=== PATIENT | male | born 1950 | race Two or more races ===

== ENCOUNTER 2023-06-15 23:51 | Observation (INO) | payer MEDICARE, OTHER ==
[2023-06-16 00:11] VITALS: BMI 20.9
[2023-06-16 01:18] LABS: VENOUS BASE EXCESS -0.8 mmol/L (-2-2); VENOUS O2 SATURATION 93.7 % (70-80); VENOUS PCO2 34.3 mmHg (38-52); VENOUS PH 7.437 (7.310-7.410)
[2023-06-16 01:20] LABS: BASO % 0.5 % (0-2.0); EOS % 0.5 % (0-4.5); HEMOGLOBIN 14.6 GM/dL (11.7-16.9); LYMPH % 16.3 % (8-40); MCH 32.7 pg (25.7-33.7); MCHC 33.9 g/dl (32.0-35.9); MEAN CELL VOLUME 96.5 fl (80-96); MEAN PLT VOLUME 8.9 fl (7.5-11.1); MONO % 8.2 % (3.8-10.2); NEUT % 74.5 % (42.8-82.8); PLATELET COUNT 184 10^3/uL (134-434); RBC 4.45 M/mm3 (4.00-5.60); RDW 15.9 % (11.9-15.9); WHITE BLOOD COUNT 8.1 K/mm3 (4.0-10.0)
[2023-06-16] MEDS ORDERED: ALBUTEROL SO4 2.5/IPRATROPIUM 0.5 INH SOL 3 ML VIAL.NEB. NEB ONE (01:33)
[2023-06-16] MEDS: ALBUTEROL SO4 2.5/IPRATROPIUM 0.5 INH SOL 3 ML VIAL.NEB. NEB ONE (01:35)
[2023-06-16 01:39] LABS: INR 1.22 (0.83-1.09); PROTHROMBIN TIME (PATIENT) 14.1 SEC (9.7-13.0)
[2023-06-16 01:41] LABS: ACTIVATED PTT 29.5 SECONDS (25.2-36.5)
[2023-06-16 01:46] LABS: POTASSIUM 4.2 mmol/L (3.5-5.1)
[2023-06-16 01:48] LABS: ALBUMIN 3.7 g/dl (3.4-5.0); BLOOD UREA NITROGEN 14.6 mg/dL (7-18); CALCIUM 9.7 mg/dL (8.5-10.1)
[2023-06-16 01:50] LABS: MAGNESIUM 2.2 mg/dL (1.8-2.4)
[2023-06-16 01:53] LABS: BILIRUBIN,TOTAL 1.8 mg/dL (0.2-1)
[2023-06-16 01:56] LABS: N-TERMINAL BNP 5302.6 pg/ml (5-125)
[2023-06-16] MEDS ORDERED: AZITHROMYCIN IVPB 500 MG/250 ML BAG IVPB ONE (02:32)
[2023-06-16] MEDS ORDERED: CEFTRIAXONE 1 GM/50 ML BAG ONE (02:32)
[2023-06-16] MEDS: CEFTRIAXONE 1,000 MG in DEXTROSE 5%-WATER - 50 ML IVPB ONE (03:19)
[2023-06-16] MEDS: AZITHROMYCIN IVPB 500 MG in DEXTROSE 5%-WATER - 250 ML IVPB ONE (03:33)
[2023-06-16] MEDS: FUROSEMIDE 40 MG/4 ML INJECTABLE VIAL IVPUSH ONE (03:33)
[2023-06-16] MEDS ORDERED: ENOXAPARIN NA (PORCINE) 40 MG/0.4 ML DISP.SYRIN SQ ONE (09:29)
[2023-06-16] MEDS ORDERED: PANTOPRAZOLE 40 MG TABLET PO ONE (09:29)
[2023-06-16] MEDS ORDERED: TAMSULOSIN HCL 0.4 MG CAP ONE (09:29)
[2023-06-16] MEDS: ENOXAPARIN NA (PORCINE) 40 MG/0.4 ML DISP.SYRIN SQ SCH (09:34)
[2023-06-16] MEDS: TAMSULOSIN HCL 0.4 MG CAP PO SCH (09:34)
[2023-06-16] MEDS: PANTOPRAZOLE 40 MG TABLET PO SCH (09:34)
[2023-06-16 11:04] LABS: BILIRUBIN,DIRECT 0.6 mg/dL (0.0-0.2)
[2023-06-16 16:46] LABS: URINE APPEARANCE CLEAR; URINE BILIRUBIN NEGATIVE (NEGATIVE); URINE COLOR YELLOW; URINE GLUCOSE (UA) NEGATIVE (NEGATIVE); URINE KETONE NEGATIVE (NEGATIVE); URINE LEUK ESTERASE NEGATIVE (NEGATIVE); URINE NITRITE NEGATIVE (NEGATIVE); URINE PROTEIN TRACE (NEGATIVE); URINE UROBILINOGEN 0.2 mg/dL (0.2-1.0)
[2023-06-16] MEDS ORDERED: KETOROLAC TROMETHAMINE 15 MG/ML VIAL ONE (17:16)
[2023-06-16] MEDS: KETOROLAC TROMETHAMINE 15 MG/ML VIAL IVPUSH PRN (17:19)
[2023-06-16] MEDS ORDERED: ROSUVASTATIN CA 20 MG TABLET ONE (22:38)
[2023-06-16] MEDS ORDERED: HEPARIN NA (PORCINE) 5,000 UNITS/ML 1ML VIAL ONE (22:38)
[2023-06-16] MEDS: ROSUVASTATIN CA 20 MG TABLET PO SCH (22:43)
[2023-06-16] MEDS: HEPARIN NA (PORCINE) 5,000 UNITS/ML 1ML VIAL SQ SCH (22:44)
[2023-06-17 07:39] LABS: HEMATOCRIT 39.6 % (35.4-49); HEMOGLOBIN 13.5 GM/dL (11.7-16.9); MCH 32.9 pg (25.7-33.7); MEAN CELL VOLUME 96.8 fl (80-96); MEAN PLT VOLUME 9.8 fl (7.5-11.1); PLATELET COUNT 156 10^3/uL (134-434); RBC 4.09 M/mm3 (4.00-5.60); RDW 16.1 % (11.9-15.9); WHITE BLOOD COUNT 7.1 K/mm3 (4.0-10.0)
[2023-06-17 07:44] LABS: POTASSIUM 3.9 mmol/L (3.5-5.1)
[2023-06-17 07:51] LABS: ALBUMIN 3.1 g/dl (3.4-5.0); CALCIUM 9.1 mg/dL (8.5-10.1); MAGNESIUM 2.3 mg/dL (1.8-2.4)
[2023-06-17 07:52] LABS: BLOOD UREA NITROGEN 18.1 mg/dL (7-18)
[2023-06-17 07:53] LABS: ALBUMIN 3.1 g/dl (3.4-5.0)
[2023-06-17 07:54] LABS: PHOSPHOROUS 4.4 mg/dL (2.5-4.9)
[2023-06-17 07:55] LABS: CREATININE 1.1 mg/dL (0.55-1.3)
[2023-06-17 07:56] LABS: BILIRUBIN,DIRECT 0.6 mg/dL (0.0-0.2); BILIRUBIN,TOTAL 1.8 mg/dL (0.2-1)
[2023-06-17 07:58] LABS: BILIRUBIN,TOTAL 1.9 mg/dL (0.2-1)
[2023-06-17] MEDS: FUROSEMIDE 40 MG/4 ML INJECTABLE VIAL IVPUSH SCH (09:26)
[2023-06-17] MEDS: HEPARIN NA (PORCINE) 5,000 UNITS/ML 1ML VIAL SQ SCH (21:43)
[2023-06-18 08:27] LABS: BASO % 0.9 % (0-2.0); EOS % 2.4 % (0-4.5); HEMATOCRIT 44.2 % (35.4-49); HEMOGLOBIN 14.7 GM/dL (11.7-16.9); LYMPH % 22.2 % (8-40); MCH 32.2 pg (25.7-33.7); MCHC 33.2 g/dl (32.0-35.9); MEAN CELL VOLUME 97.1 fl (80-96); MEAN PLT VOLUME 9.4 fl (7.5-11.1); MONO % 11.1 % (3.8-10.2); NEUT % 63.4 % (42.8-82.8); PLATELET COUNT 174 10^3/uL (134-434); RBC 4.55 M/mm3 (4.00-5.60); RDW 15.9 % (11.9-15.9); WHITE BLOOD COUNT 7.8 K/mm3 (4.0-10.0)
[2023-06-18 08:52] LABS: POTASSIUM 3.8 mmol/L (3.5-5.1)
[2023-06-18 09:02] LABS: ALBUMIN 3.6 g/dl (3.4-5.0); BLOOD UREA NITROGEN 17.6 mg/dL (7-18); CALCIUM 9.7 mg/dL (8.5-10.1); MAGNESIUM 2.3 mg/dL (1.8-2.4)
[2023-06-18 09:05] LABS: CREATININE 1.2 mg/dL (0.55-1.3)
[2023-06-18 09:06] LABS: PHOSPHOROUS 4.3 mg/dL (2.5-4.9)
[2023-06-18 09:07] LABS: BILIRUBIN,TOTAL 1.9 mg/dL (0.2-1); TOT PROT 6.7 g/dl (6.4-8.2)
[2023-06-19 07:34] LABS: BASO % 0.5 % (0-2.0); EOS % 2.8 % (0-4.5); HEMATOCRIT 41.4 % (35.4-49); HEMOGLOBIN 14.2 GM/dL (11.7-16.9); LYMPH % 22.6 % (8-40); MCH 33.1 pg (25.7-33.7); MCHC 34.4 g/dl (32.0-35.9); MEAN CELL VOLUME 96.3 fl (80-96); MONO % 11.9 % (3.8-10.2); NEUT % 62.2 % (42.8-82.8); PLATELET COUNT 162 10^3/uL (134-434); RDW 16.1 % (11.9-15.9); WHITE BLOOD COUNT 6.9 K/mm3 (4.0-10.0)
[2023-06-19 07:56] LABS: POTASSIUM 4.2 mmol/L (3.5-5.1)
[2023-06-19 08:09] LABS: BLOOD UREA NITROGEN 13.5 mg/dL (7-18); CALCIUM 9.3 mg/dL (8.5-10.1)
[2023-06-19 08:10] LABS: ALBUMIN 3.2 g/dl (3.4-5.0); MAGNESIUM 2.3 mg/dL (1.8-2.4)
[2023-06-19 08:12] LABS: CREATININE 0.9 mg/dL (0.55-1.3); PHOSPHOROUS 3.8 mg/dL (2.5-4.9)
[2023-06-19 08:13] LABS: BILIRUBIN,TOTAL 1.5 mg/dL (0.2-1); TOT PROT 6.4 g/dl (6.4-8.2)
[2023-06-19] MEDS: TAMSULOSIN HCL 0.4 MG CAP PO SCH (08:23)
[2023-06-19 09:03] VITALS: RESP 18
[2023-06-19] MEDS: FINASTERIDE 5 MG TABLET (FP) PO SCH (09:10)
[2023-06-19 15:41] VITALS: BP 116/68; PULSE 86; TEMP 98.3
== END 2023-06-19 16:59 | disposition home health service (06) ==
LOC: JER 23:51 → JERBED 06-16 02:51 → J4S 06-17 01:14
PROVIDERS: ADMIT Internal Medicine; ATTEND Internal Medicine
PROC: 3E0F7GC Introduction of Other Therapeutic Substance into Respiratory Tract, Via Natural or Artificial Opening (ICD-10-PCS; principal; 2023-06-16)
PROC: 3E03329 Introduction of Other Anti-infective into Peripheral Vein, Percutaneous Approach (ICD-10-PCS; 2023-06-16)
PROC: 3E023GC Introduction of Other Therapeutic Substance into Muscle, Percutaneous Approach (ICD-10-PCS; 2023-06-16)
PROC: 3E033GC Introduction of Other Therapeutic Substance into Peripheral Vein, Percutaneous Approach (ICD-10-PCS; 2023-06-16)
PROC: 3E0333Z Introduction of Anti-inflammatory into Peripheral Vein, Percutaneous Approach (ICD-10-PCS; 2023-06-16)
DX: I50.31 Acute diastolic (congestive) heart failure (principal); H81.399 Other peripheral vertigo, unspecified ear; E78.5 Hyperlipidemia, unspecified; R06.02 Shortness of breath; R94.5 Abnormal results of liver function studies; K21.9 Gastro-esophageal reflux disease without esophagitis; R94.31 Abnormal electrocardiogram [ECG] [EKG]; R33.9 Retention of urine, unspecified; K40.90 Unilateral inguinal hernia, without obstruction or gangrene, not specified as recurrent; N40.0 Benign prostatic hyperplasia without lower urinary tract symptoms; R74.01 Elevation of levels of liver transaminase levels; K76.0 Fatty (change of) liver, not elsewhere classified
CPT/HCPCS: 0241U-QW; 36415; 71045-TC-FY; 71260-TC; 74177-TC; 76705-TC; 80053; 80076; 81003; 82248; 82803; 83735; 83880; 84100; 84484; 85025; 85027; 85610; 85730; 86705; 86707; 86709; 86803; 87340; 87350; 87517; 93005; 93010; 93306-TC; 94640; 96365; 96368; 96372; 96375; 96376; 99285-25; G0378; J1644; Q9967

== ENCOUNTER 2023-11-21 18:23 | Inpatient (IN) | payer MEDICARE, OTHER ==
[2023-11-21 20:14] LABS: BASO % 0.4 % (0-2.0); EOS % 0.7 % (0-4.5); HEMATOCRIT 49.9 % (35.4-49); HEMOGLOBIN 16.5 GM/dL (11.7-16.9); LYMPH % 14.7 % (8-40); MCH 31.5 pg (25.7-33.7); MCHC 33.2 g/dl (32.0-35.9); MEAN CELL VOLUME 94.8 fl (80-96); MEAN PLT VOLUME 8.4 fl (7.5-11.1); MONO % 9.7 % (3.8-10.2); NEUT % 74.5 % (42.8-82.8); PLATELET COUNT 208 10^3/uL (134-434); RBC 5.26 M/mm3 (4.00-5.60); RDW 19.8 % (11.9-15.9); WHITE BLOOD COUNT 7.4 K/mm3 (4.0-10.0)
[2023-11-21 20:23] LABS: INR 1.24 (0.83-1.09); PROTHROMBIN TIME (PATIENT) 13.9 SEC (9.7-13.0)
[2023-11-21 20:26] LABS: ACTIVATED PTT 30.4 SECONDS (25.2-36.5)
[2023-11-21 20:33] LABS: POTASSIUM 3.6 mmol/L (3.5-5.1)
[2023-11-21 20:39] LABS: ALBUMIN 3.4 g/dl (3.4-5.0); BLOOD UREA NITROGEN 26.5 mg/dL (7-18); CALCIUM 9.7 mg/dL (8.5-10.1)
[2023-11-21 20:42] LABS: BILIRUBIN,TOTAL 3.7 mg/dL (0.2-1); CREATININE 1.2 mg/dL (0.55-1.3)
[2023-11-21 20:43] LABS: TOT PROT 6.6 g/dl (6.4-8.2)
[2023-11-21 20:46] LABS: EPI CELLS 10 /uL (0-25.1); HYALINE CASTS 0 /uL (0-3.1); PH,URINE 5.5 (5.0-8.0); URINE APPEARANCE CLEAR; URINE BACTERIA 4 /uL (0-1359); URINE BILIRUBIN NEGATIVE (NEGATIVE); URINE COLOR DK YELLOW; URINE GLUCOSE (UA) NEGATIVE (NEGATIVE); URINE KETONE NEGATIVE (NEGATIVE); URINE LEUK ESTERASE NEGATIVE (NEGATIVE); URINE NITRITE NEGATIVE (NEGATIVE); URINE PROTEIN 1+ (NEGATIVE); URINE RBC 69 /uL (0-23.9); URINE WBC 19 /uL (0-25.8)
[2023-11-21 20:47] LABS: N-TERMINAL BNP 16652.7 pg/ml (5-125)
[2023-11-21] MEDS ORDERED: FUROSEMIDE 40 MG/4 ML INJECTABLE VIAL ONE (20:56)
[2023-11-21] MEDS: FUROSEMIDE 40 MG/4 ML INJECTABLE VIAL IVPUSH ONE (21:05)
[2023-11-21] MEDS: SODIUM CHLORIDE 0.9% 500 ML INFUS.BAG IV ONE ×2 (21:12→21:30)
[2023-11-21] MEDS ORDERED: LACTULOSE 20 GM/30 ML UDC (FOR ORAL USE ONLY) ONE (22:02)
[2023-11-21] MEDS ORDERED: POLYETHYLENE GLYCOL (HEALTHYLAX) 3350 17 GM PACKET ONE (22:02)
[2023-11-21] MEDS: LACTULOSE 20 GM/30 ML UDC (FOR ORAL USE ONLY) PO ONE (22:23)
[2023-11-21] MEDS: POLYETHYLENE GLYCOL (HEALTHYLAX) 3350 17 GM PACKET PO SCH (22:23)
[2023-11-21 22:29] LABS: URINE CRYSTALS MANY CALCIUM OXALATE /hpf
[2023-11-21] MEDS ORDERED: POTASSIUM CHLORIDE ORAL LIQUID 20 MEQ/15 ML ONE (22:30)
[2023-11-21] MEDS: POTASSIUM CHLORIDE ORAL LIQUID 20 MEQ/15 ML PO ONE (22:32)
[2023-11-21] MEDS ORDERED: MECLIZINE HCL 12.5 MG TABLET PO PRN (23:29)
[2023-11-22] MEDS ORDERED: FUROSEMIDE 40 MG/4 ML INJECTABLE VIAL IVPUSH SCH
[2023-11-22] MEDS: FUROSEMIDE 40 MG/4 ML INJECTABLE VIAL IVPUSH SCH (01:39)
[2023-11-22 07:58] LABS: BASO % 0.5 % (0-2.0); EOS % 0.2 % (0-4.5); HEMATOCRIT 46.8 % (35.4-49); HEMOGLOBIN 15.6 GM/dL (11.7-16.9); LYMPH % 8.3 % (8-40); MCH 31.8 pg (25.7-33.7); MCHC 33.3 g/dl (32.0-35.9); MEAN CELL VOLUME 95.3 fl (80-96); MEAN PLT VOLUME 8.8 fl (7.5-11.1); MONO % 7.8 % (3.8-10.2); NEUT % 83.2 % (42.8-82.8); PLATELET COUNT 184 10^3/uL (134-434); RBC 4.91 M/mm3 (4.00-5.60); RDW 19.8 % (11.9-15.9); WHITE BLOOD COUNT 8.9 K/mm3 (4.0-10.0)
[2023-11-22 08:10] LABS: POTASSIUM 3.3 mmol/L (3.5-5.1)
[2023-11-22 08:13] LABS: ALBUMIN 3.2 g/dl (3.4-5.0); BLOOD UREA NITROGEN 23.2 mg/dL (7-18); CALCIUM 9.5 mg/dL (8.5-10.1)
[2023-11-22 08:16] LABS: CREATININE 1.2 mg/dL (0.55-1.3); PHOSPHOROUS 3.6 mg/dL (2.5-4.9)
[2023-11-22 08:18] LABS: BILIRUBIN,TOTAL 4.2 mg/dL (0.2-1); TOT PROT 6.2 g/dl (6.4-8.2)
[2023-11-22] MEDS: TAMSULOSIN HCL 0.4 MG CAP PO SCH (09:30)
[2023-11-22] MEDS: levETIRAcetam 250 MG TABLET PO SCH (09:30)
[2023-11-22] MEDS: PANTOPRAZOLE 40 MG TABLET PO SCH (09:30)
[2023-11-22] MEDS: ENOXAPARIN NA (PORCINE) 40 MG/0.4 ML DISP.SYRIN SQ SCH (09:30)
[2023-11-22] MEDS: metoPROLOL SUCCINATE 25 MG TAB.SR.24H (FP) PO SCH (09:30)
[2023-11-22] MEDS: FINASTERIDE 5 MG TABLET (FP) PO SCH (09:30)
[2023-11-22] MEDS: LIPASE/PROTEASE/AMYLASE 36,000 UNIT CAPSULE PO SCH (16:04)
[2023-11-22] MEDS: ROSUVASTATIN CA 40 MG TABLET PO SCH (22:16)
[2023-11-22] MEDS: POTASSIUM CHLORIDE ORAL LIQUID 20 MEQ/15 ML PO ONE (22:16)
[2023-11-23] MEDS: levETIRAcetam 500 MG/5 ML INJECTION VIAL IVPB ONE (01:10)
[2023-11-23] MEDS ORDERED: RAPID SEQUENCE INTUBATION KIT NR ONE (01:12)
[2023-11-23 01:18] LABS: ARTERIAL BLD GAS O2 SATURATION 97.3 % (95-98); ARTERIAL BLOOD GAS BASE EXCESS -1.5 mmol/L (-2-2); ARTERIAL BLOOD GAS PO2 82.2 mmHg (80-100)
[2023-11-23 01:22] LABS: ALLENS TEST POSITIVE
[2023-11-23] MEDS: SODIUM CHLORIDE 500 ML IV STA (01:31)
[2023-11-23] MEDS ORDERED: MIDAZOLAM IN 0.9 % SOD.CHLORID 1 MG/1 ML PLAST..BAG ONE (01:47)
[2023-11-23 02:38] LABS: ARTERIAL BLD GAS O2 SATURATION 91.3 % (95-98); ARTERIAL BLOOD GAS BASE EXCESS -6.7 mmol/L (-2-2); ARTERIAL BLOOD GAS PO2 60.8 mmHg (80-100); ARTERIAL BLOOD GAS pH 7.378 (7.350-7.450)
[2023-11-23 02:39] LABS: ALLENS TEST POSITIVE; VENT MODE A/C; VENT RATE 12
[2023-11-23 02:50] LABS: BASO % 0.3 % (0-2.0); EOS % 0.1 % (0-4.5); HEMATOCRIT 43.1 % (35.4-49); HEMOGLOBIN 14.3 GM/dL (11.7-16.9); LYMPH % 10.9 % (8-40); MCH 31.5 pg (25.7-33.7); MCHC 33.2 g/dl (32.0-35.9); MEAN CELL VOLUME 95.1 fl (80-96); MEAN PLT VOLUME 8.4 fl (7.5-11.1); MONO % 9.5 % (3.8-10.2); NEUT % 79.2 % (42.8-82.8); PLATELET COUNT 167 10^3/uL (134-434); RBC 4.53 M/mm3 (4.00-5.60); RDW 20.1 % (11.9-15.9); WHITE BLOOD COUNT 6.7 K/mm3 (4.0-10.0)
[2023-11-23] MEDS: POLYETHYLENE GLYCOL (HEALTHYLAX) 3350 17 GM PACKET PO SCH (02:51)
[2023-11-23] MEDS: MIDAZOLAM IN 0.9 % SOD.CHLORID 100 MG/100 ML PLAST..BAG IVPB SCH (02:51)
[2023-11-23] MEDS: PATIENT'S OWN MEDICATION (NON-FORMULARY) (Tenapanor Hcl [Ibsrela] 50 MG Tablet) PO SCH (02:52)
[2023-11-23] MEDS: SODIUM CHLORIDE 1,000 ML IV STA (02:52)
[2023-11-23 03:03] LABS: INR 1.53 (0.83-1.09); PROTHROMBIN TIME (PATIENT) 17.4 SEC (9.7-13.0)
[2023-11-23 03:06] LABS: ACTIVATED PTT 29.9 SECONDS (25.2-36.5)
[2023-11-23 03:10] LABS: CHLORIDE 108 mmol/L (98-107); POTASSIUM 3.1 mmol/L (3.5-5.1); SODIUM 137 mmol/L (136-145)
[2023-11-23 03:14] LABS: ANION GAP 9 mmol/L (4-13); CO2 21 mmol/L (21-32); GLUCOSE,RANDOM 98 mg/dL (74-106); MAGNESIUM 1.6 mg/dL (1.8-2.4)
[2023-11-23 03:15] LABS: BLOOD UREA NITROGEN 22.8 mg/dL (7-18)
[2023-11-23 03:17] LABS: CREATININE 0.9 mg/dL (0.55-1.3); SGPT/ALT 24 U/L (13-61)
[2023-11-23 03:18] LABS: PHOSPHOROUS 2.9 mg/dL (2.5-4.9); SGOT/AST 41 U/L (15-37)
[2023-11-23 03:19] LABS: BILIRUBIN,TOTAL 2.7 mg/dL (0.2-1); TOT PROT 4.4 g/dl (6.4-8.2)
[2023-11-23] MEDS: POLYETHYLENE GLYCOL (HEALTHYLAX) 3350 17 GM PACKET PO ONE (03:19)
[2023-11-23 03:20] LABS: ALK PHOS 103 U/L (45-117)
[2023-11-23] MEDS: CEFTRIAXONE 1 GM in DEXTROSE 5%-WATER - 50 ML IVPB SCH (03:22)
[2023-11-23 03:27] LABS: ALBUMIN 2.2 g/dl (3.4-5.0); CALCIUM 6.7 mg/dL (8.5-10.1)
[2023-11-23 03:28] LABS: LACTIC ACID 3.4 mmol/L (0.4-2.0)
[2023-11-23] MEDS: TAMSULOSIN HCL 0.4 MG CAP PO SCH (08:52)
[2023-11-23] MEDS: MAGNESIUM 2GM/50ML STERILE WATER IVPB IVPB ONE (09:08)
[2023-11-23] MEDS: levETIRAcetam 500 MG/5 ML INJECTION VIAL IVPB SCH (09:09)
[2023-11-23] MEDS: ENOXAPARIN NA (PORCINE) 40 MG/0.4 ML DISP.SYRIN SQ SCH (09:10)
[2023-11-23] MEDS: MUPIROCIN 2% TOPICAL OINTMENT FOR DECOLONIZATION NS SCH (09:10)
[2023-11-23] MEDS: FINASTERIDE 5 MG TABLET (FP) PO SCH (09:11)
[2023-11-23] MEDS ORDERED: [UNRECOGNIZED DRUG - OTHER] PO SCH (10:00)
[2023-11-23] MEDS ORDERED: levETIRAcetam 500 MG/5 ML INJECTION VIAL IVPB SCH (10:00)
[2023-11-23] MEDS ORDERED: FUROSEMIDE 40 MG/4 ML INJECTABLE VIAL IVPUSH SCH ×2 (10:00)
[2023-11-23] MEDS: POTASSIUM PHOSPHATE 30 MM in DEXTROSE 5%-WATER - 250 ML IVPB ONE (10:30)
[2023-11-23] MEDS: LIPASE/PROTEASE/AMYLASE 36,000 UNIT CAPSULE PO SCH (10:31)
[2023-11-23] MEDS ORDERED: DOPAMINE 400 MG/D5W - 400,000 MCG/250 ML INFUS.BAG IVPB ONE (12:37)
[2023-11-23] MEDS: DOPAMINE 400 MG/D5W - 400,000 MCG/250 ML INFUS.BAG IVPB SCH (12:53)
[2023-11-23] MEDS: DOXYCYCLINE INJECTION 100 MG in DEXTROSE 5%-WATER 100 ML IVPB SCH (15:50)
[2023-11-23] MEDS ORDERED: FUROSEMIDE INJECTION 100 MG in SODIUM CHLORIDE 90 ML IVPB SCH (18:00)
[2023-11-23] MEDS ORDERED: FUROSEMIDE 40 MG/4 ML INJECTABLE VIAL ONE (18:32)
[2023-11-23] MEDS: FUROSEMIDE INJECTION 100 MG in SODIUM CHLORIDE 90 ML IVPB SCH (18:36)
[2023-11-23 18:52] LABS: POTASSIUM 4.2 mmol/L (3.5-5.1)
[2023-11-23 18:54] LABS: MAGNESIUM 2.6 mg/dL (1.8-2.4)
[2023-11-23 18:57] LABS: CREATININE 1.4 mg/dL (0.55-1.3)
[2023-11-23 18:58] LABS: PHOSPHOROUS 4.8 mg/dL (2.5-4.9)
[2023-11-23 19:03] LABS: CALCIUM 9.6 mg/dL (8.5-10.1)
[2023-11-23] MEDS: CHLORHEXIDINE GLUCONATE 4% CLEANSER FOR DECOLONIZATION TP SCH (21:53)
[2023-11-23] MEDS ORDERED: ROSUVASTATIN CA 40 MG TABLET PO SCH (22:00)
[2023-11-23] MEDS: ROSUVASTATIN CA 20 MG TABLET PO SCH (23:01)
[2023-11-24] MEDS: VANCOMYCIN/WATER FOR INJ (PEG) 1,000 MG/200 ML BAG IVPB ONE (01:55)
[2023-11-24 06:58] LABS: BASO % 0.6 % (0-2.0); EOS % 0.1 % (0-4.5); HEMATOCRIT 50.7 % (35.4-49); HEMOGLOBIN 16.7 GM/dL (11.7-16.9); LYMPH % 10.6 % (8-40); MCH 31.5 pg (25.7-33.7); MEAN CELL VOLUME 95.5 fl (80-96); MEAN PLT VOLUME 9.2 fl (7.5-11.1); MONO % 8.8 % (3.8-10.2); NEUT % 79.9 % (42.8-82.8); PLATELET COUNT 208 10^3/uL (134-434); RDW 19.9 % (11.9-15.9)
[2023-11-24 07:13] LABS: POTASSIUM 4.6 mmol/L (3.5-5.1)
[2023-11-24 07:20] LABS: ALBUMIN 2.9 g/dl (3.4-5.0); BLOOD UREA NITROGEN 27.8 mg/dL (7-18); CALCIUM 9.4 mg/dL (8.5-10.1); MAGNESIUM 2.4 mg/dL (1.8-2.4)
[2023-11-24 07:23] LABS: CREATININE 1.3 mg/dL (0.55-1.3)
[2023-11-24 07:24] LABS: PHOSPHOROUS 4.7 mg/dL (2.5-4.9)
[2023-11-24] MEDS: SODIUM CHLORIDE 0.9% 500 ML INFUS.BAG IV ONE (08:01)
[2023-11-25] MEDS: ALBUMIN HUMAN 5% 250 ML IV SOLUTION IV ONE (00:35)
[2023-11-25] MEDS ORDERED: VANCOMYCIN/WATER FOR INJ (PEG) 1,000 MG/200 ML BAG IVPB SCH (02:00)
[2023-11-25 07:58] LABS: BASO % 0.7 % (0-2.0); EOS % 0.1 % (0-4.5); HEMATOCRIT 54.9 % (35.4-49); LYMPH % 13.8 % (8-40); MCH 31.5 pg (25.7-33.7); MCHC 32.8 g/dl (32.0-35.9); MEAN CELL VOLUME 95.9 fl (80-96); MEAN PLT VOLUME 9.4 fl (7.5-11.1); MONO % 8.3 % (3.8-10.2); NEUT % 77.1 % (42.8-82.8); PLATELET COUNT 191 10^3/uL (134-434); RBC 5.72 M/mm3 (4.00-5.60); RDW 20.4 % (11.9-15.9); WHITE BLOOD COUNT 10.7 K/mm3 (4.0-10.0)
[2023-11-25 08:13] LABS: POTASSIUM 4.9 mmol/L (3.5-5.1)
[2023-11-25 08:17] LABS: ALBUMIN 3.1 g/dl (3.4-5.0); BLOOD UREA NITROGEN 34.8 mg/dL (7-18); CALCIUM 9.6 mg/dL (8.5-10.1); MAGNESIUM 2.6 mg/dL (1.8-2.4)
[2023-11-25 08:20] LABS: CREATININE 1.7 mg/dL (0.55-1.3); PHOSPHOROUS 5.7 mg/dL (2.5-4.9)
[2023-11-25 08:22] LABS: BILIRUBIN,TOTAL 4.8 mg/dL (0.2-1); TOT PROT 5.9 g/dl (6.4-8.2)
[2023-11-25] MEDS: LACTATED RINGERS SOLUTION 1000 ML INFUS.BAG IV ONE (11:35)
[2023-11-25] MEDS: FENTANYL CITRATE/PF 50 MCG/ML VIAL IVPUSH ONE ×2 (11:55→13:51)
[2023-11-25] MEDS: PHYTONADIONE 5 MG TABLET PO ONE (13:50)
[2023-11-25 13:55] LABS: BILIRUBIN,DIRECT 3.1 mg/dL (0.0-0.2)
[2023-11-25 14:04] VITALS: BMI 20.2
[2023-11-25] MEDS: MIDAZOLAM HCL 5 MG/1 ML Single Dose Vial IVPUSH ONE (14:49)
[2023-11-25] MEDS: NOREPINEPHRINE 0.9 % NACL 8 MG/250 ML BAG IVPB SCH (17:28)
[2023-11-25 18:25] LABS: BF WBC & OTHER NUCLEATED CELLS 354 /mm3
[2023-11-25 20:16] LABS: BODY FLUID MACROPHAGES 8 %; BODY FLUID MESOTHELIAL 17 %
[2023-11-26 08:06] LABS: HEMATOCRIT 50.2 % (35.4-49); HEMOGLOBIN 16.5 GM/dL (11.7-16.9); MCH 31.3 pg (25.7-33.7); MCHC 32.8 g/dl (32.0-35.9); MEAN CELL VOLUME 95.4 fl (80-96); MEAN PLT VOLUME 9.2 fl (7.5-11.1); PLATELET COUNT 192 10^3/uL (134-434); RBC 5.26 M/mm3 (4.00-5.60); RDW 20.6 % (11.9-15.9)
[2023-11-26 08:22] LABS: CALCIUM 8.7 mg/dL (8.5-10.1)
[2023-11-26 08:23] LABS: BLOOD UREA NITROGEN 32.3 mg/dL (7-18); MAGNESIUM 2.3 mg/dL (1.8-2.4)
[2023-11-26 08:24] LABS: INR 2.79 (0.83-1.09); PROTHROMBIN TIME (PATIENT) 31.1 SEC (9.7-13.0)
[2023-11-26 08:26] LABS: ACTIVATED PTT 46.1 SECONDS (25.2-36.5); CREATININE 1.4 mg/dL (0.55-1.3); PHOSPHOROUS 3.3 mg/dL (2.5-4.9)
[2023-11-26 08:27] LABS: BILIRUBIN,TOTAL 6.2 mg/dL (0.2-1); TOT PROT 4.7 g/dl (6.4-8.2)
[2023-11-26 08:36] LABS: ALBUMIN 2.3 g/dl (3.4-5.0)
[2023-11-26 09:31] LABS: ANISOCYTOSIS 1+
[2023-11-26] MEDS: PHYTONADIONE 5 MG TABLET PO ONE (18:17)
[2023-11-27 06:40] LABS: HEMATOCRIT 50.1 % (35.4-49); HEMOGLOBIN 16.2 GM/dL (11.7-16.9); MCH 30.9 pg (25.7-33.7); MCHC 32.3 g/dl (32.0-35.9); MEAN CELL VOLUME 95.7 fl (80-96); MEAN PLT VOLUME 9.1 fl (7.5-11.1); PLATELET COUNT 180 10^3/uL (134-434); RBC 5.24 M/mm3 (4.00-5.60); RDW 20.9 % (11.9-15.9); WHITE BLOOD COUNT 10.5 K/mm3 (4.0-10.0)
[2023-11-27 06:55] LABS: INR 2.19 (0.83-1.09); PROTHROMBIN TIME (PATIENT) 24.6 SEC (9.7-13.0)
[2023-11-27 06:58] LABS: ACTIVATED PTT 42.7 SECONDS (25.2-36.5)
[2023-11-27 07:03] LABS: POTASSIUM 3.7 mmol/L (3.5-5.1)
[2023-11-27 07:06] LABS: ALBUMIN 2.2 g/dl (3.4-5.0); CALCIUM 8.6 mg/dL (8.5-10.1)
[2023-11-27 07:10] LABS: CREATININE 1.4 mg/dL (0.55-1.3)
[2023-11-27 07:11] LABS: BILIRUBIN,TOTAL 7.9 mg/dL (0.2-1); TOT PROT 4.8 g/dl (6.4-8.2)
[2023-11-27 08:23] LABS: HIV INTERPRETATION NEGATIVE (NEGATIVE)
[2023-11-27 09:32] LABS: ANISOCYTOSIS 0; HELMET CELLS 0; HOWELL-JOLLY BODIES 0; MACROCYTOSIS 0; OVALOCYTE 0; ROULEAU 0; SICKELED CELLS 0; TARGET CELLS 0; TEAR DROP CELLS 0; TOXIC GRANULATION 0
[2023-11-27] MEDS: ALBUMIN HUMAN 25% 12.5 GM/50 ML VIAL IV ONE (12:55)
[2023-11-27] MEDS: HYDROCORTISONE SOD SUCCINATE 100 MG/2 ML VIAL IVPB SCH (12:56)
[2023-11-27] MEDS: FLUDROCORTISONE ACETATE 0.1 MG TABLET (FP) PO SCH (12:56)
[2023-11-27] MEDS: FUROSEMIDE 40 MG/4 ML INJECTABLE VIAL IVPUSH ONE (13:45)
[2023-11-27 14:09] LABS: BODY FLUID ALBUMIN 1.1 g/dL (Not Estab.)
[2023-11-28 06:51] LABS: HEMATOCRIT 48.3 % (35.4-49); MCH 31.2 pg (25.7-33.7); MCHC 33.1 g/dl (32.0-35.9); MEAN CELL VOLUME 94.4 fl (80-96); MEAN PLT VOLUME 8.9 fl (7.5-11.1); PLATELET COUNT 175 10^3/uL (134-434); RBC 5.12 M/mm3 (4.00-5.60); RDW 21.4 % (11.9-15.9); WHITE BLOOD COUNT 9.8 K/mm3 (4.0-10.0)
[2023-11-28 07:12] LABS: POTASSIUM 3.4 mmol/L (3.5-5.1)
[2023-11-28 07:17] LABS: INR 1.24 (0.83-1.09); PROTHROMBIN TIME (PATIENT) 13.9 SEC (9.7-13.0)
[2023-11-28 07:19] LABS: ALBUMIN 2.5 g/dl (3.4-5.0); BLOOD UREA NITROGEN 29.7 mg/dL (7-18)
[2023-11-28 07:20] LABS: ACTIVATED PTT 37.5 SECONDS (25.2-36.5)
[2023-11-28 07:22] LABS: BILIRUBIN,DIRECT 6.3 mg/dL (0.0-0.2); CREATININE 1.3 mg/dL (0.55-1.3)
[2023-11-28 07:24] LABS: TOT PROT 5.2 g/dl (6.4-8.2)
[2023-11-28] MEDS: POTASSIUM CHLORIDE ORAL LIQUID 20 MEQ/15 ML PO ONE (10:22)
[2023-11-28 10:33] LABS: ANISOCYTOSIS 2+; MACROCYTOSIS 1+; TARGET CELLS 1+
[2023-11-28] MEDS: KCL 20 MEQ PREMIX BAG 20 MEQ/100 ML INFUS.BAG IVPB ONE (12:56)
[2023-11-29 07:20] LABS: HEMATOCRIT 49.8 % (35.4-49); HEMOGLOBIN 16.5 GM/dL (11.7-16.9); MCH 31.2 pg (25.7-33.7); MCHC 33.1 g/dl (32.0-35.9); MEAN CELL VOLUME 94.1 fl (80-96); MEAN PLT VOLUME 9.3 fl (7.5-11.1); PLATELET COUNT 190 10^3/uL (134-434); RBC 5.29 M/mm3 (4.00-5.60); RDW 21.1 % (11.9-15.9); WHITE BLOOD COUNT 10.1 K/mm3 (4.0-10.0)
[2023-11-29 07:28] LABS: INR 1.02 (0.83-1.09); PROTHROMBIN TIME (PATIENT) 11.7 SEC (9.7-13.0)
[2023-11-29 07:30] LABS: ACTIVATED PTT 35.7 SECONDS (25.2-36.5)
[2023-11-29 07:38] LABS: POTASSIUM 4.1 mmol/L (3.5-5.1)
[2023-11-29 07:41] LABS: ALBUMIN 2.5 g/dl (3.4-5.0); BLOOD UREA NITROGEN 46.6 mg/dL (7-18); MAGNESIUM 2.4 mg/dL (1.8-2.4)
[2023-11-29 07:44] LABS: CREATININE 1.7 mg/dL (0.55-1.3); PHOSPHOROUS 3.6 mg/dL (2.5-4.9)
[2023-11-29 07:46] LABS: BILIRUBIN,TOTAL 6.4 mg/dL (0.2-1); TOT PROT 5.5 g/dl (6.4-8.2)
[2023-11-29 08:51] LABS: PLATELET ESTIMATE ADEQUATE
[2023-11-30 06:53] LABS: HEMOGLOBIN 16.3 GM/dL (11.7-16.9); MCH 31.4 pg (25.7-33.7); MCHC 33.3 g/dl (32.0-35.9); MEAN CELL VOLUME 94.4 fl (80-96); MEAN PLT VOLUME 9.2 fl (7.5-11.1); PLATELET COUNT 175 10^3/uL (134-434); POTASSIUM 4.9 mmol/L (3.5-5.1); RBC 5.19 M/mm3 (4.00-5.60); RDW 20.9 % (11.9-15.9); WHITE BLOOD COUNT 7.3 K/mm3 (4.0-10.0)
[2023-11-30 06:58] LABS: CALCIUM 8.6 mg/dL (8.5-10.1)
[2023-11-30 06:59] LABS: ALBUMIN 2.4 g/dl (3.4-5.0); MAGNESIUM 2.5 mg/dL (1.8-2.4)
[2023-11-30 07:02] LABS: CREATININE 2.4 mg/dL (0.55-1.3)
[2023-11-30 07:03] LABS: BILIRUBIN,TOTAL 5.5 mg/dL (0.2-1); TOT PROT 5.7 g/dl (6.4-8.2)
[2023-11-30 09:40] LABS: ANISOCYTOSIS 1+
[2023-11-30] MEDS ORDERED: ALBUMIN HUMAN 25% 100 ML VIAL IV SCH (10:00)
[2023-11-30] MEDS: ALBUMIN HUMAN 25% 12.5 GM/50 ML VIAL IV SCH (10:49)
[2023-11-30] MEDS: ENOXAPARIN NA (PORCINE) 30 MG/0.3 ML DISP.SYRIN SQ SCH (10:58)
[2023-11-30] MEDS: METOCLOPRAMIDE HCL INJECTION 10 MG/2 ML VIAL IVPUSH SCH (13:15)
[2023-11-30] MEDS ORDERED: ALBUTEROL SO4 2.5/IPRATROPIUM 0.5 INH SOL 3 ML VIAL.NEB. NEB PRN (13:26)
[2023-11-30] MEDS ORDERED: ENOXAPARIN NA (PORCINE) 30 MG/0.3 ML DISP.SYRIN SQ SCH (13:29)
[2023-11-30] MEDS: CEFTRIAXONE 1 GM in DEXTROSE 5%-WATER - 50 ML IVPB SCH (14:29)
[2023-11-30] MEDS: DOXYCYCLINE INJECTION 100 MG in DEXTROSE 5%-WATER 100 ML IVPB SCH (14:29)
[2023-11-30] MEDS: DEXMEDETOMIDINE PREMIX 400 MCG/100 ML BAG IVPB SCH (17:53)
[2023-12-01 07:47] LABS: HEMATOCRIT 44.8 % (35.4-49); MCH 31.2 pg (25.7-33.7); MCHC 33.5 g/dl (32.0-35.9); MEAN CELL VOLUME 93.2 fl (80-96); MEAN PLT VOLUME 8.8 fl (7.5-11.1); PLATELET COUNT 155 10^3/uL (134-434); RBC 4.81 M/mm3 (4.00-5.60); RDW 21.4 % (11.9-15.9); WHITE BLOOD COUNT 9.4 K/mm3 (4.0-10.0)
[2023-12-01 08:11] LABS: POTASSIUM 5.3 mmol/L (3.5-5.1)
[2023-12-01 08:15] LABS: MAGNESIUM 2.7 mg/dL (1.8-2.4)
[2023-12-01 08:18] LABS: ALBUMIN 2.4 g/dl (3.4-5.0)
[2023-12-01 08:20] LABS: BILIRUBIN,TOTAL 5.2 mg/dL (0.2-1); CREATININE 3.2 mg/dL (0.55-1.3); TOT PROT 5.6 g/dl (6.4-8.2)
[2023-12-01 08:27] LABS: BLOOD UREA NITROGEN 96.1 mg/dL (7-18)
[2023-12-01 09:11] LABS: ANISOCYTOSIS 1+; MACROCYTOSIS 1+
[2023-12-01] MEDS: ENOXAPARIN NA (PORCINE) 30 MG/0.3 ML DISP.SYRIN SQ SCH (09:51)
[2023-12-01] MEDS: HEPARIN NA (PORCINE) 5,000 UNITS/ML 1ML VIAL SQ SCH (21:30)
[2023-12-02] MEDS: VASopressin 40 UNITS/100 ML BAG IV SCH (02:30)
[2023-12-02] MEDS ORDERED: VASopressin 20 UNITS/ML VIAL IV ONE (03:10)
[2023-12-02] MEDS: FUROSEMIDE 40 MG/4 ML INJECTABLE VIAL IVPUSH ONE (05:00)
[2023-12-02 05:16] LABS: ARTERIAL BLOOD GAS PO2 44.9 mmHg (80-100); ARTERIAL BLOOD GAS pH 7.273 (7.350-7.450)
[2023-12-02 05:33] LABS: ALBUMIN 2.3 g/dl (3.4-5.0)
[2023-12-02 05:35] LABS: BILIRUBIN,DIRECT 3.7 mg/dL (0.0-0.2)
[2023-12-02 05:37] LABS: BILIRUBIN,TOTAL 4.1 mg/dL (0.2-1); CHLORIDE 95 mmol/L (98-107); POTASSIUM 5.7 mmol/L (3.5-5.1); SODIUM 132 mmol/L (136-145); TOT PROT 4.9 g/dl (6.4-8.2)
[2023-12-02 05:39] LABS: ANION GAP 16 mmol/L (4-13); CALCIUM 7.4 mg/dL (8.5-10.1); CO2 21 mmol/L (21-32); GLUCOSE,RANDOM 117 mg/dL (74-106); HEMATOCRIT 44.5 % (35.4-49); HEMOGLOBIN 14.4 GM/dL (11.7-16.9); LACTIC ACID 2.5 mmol/L (0.4-2.0); MCH 30.3 pg (25.7-33.7); MCHC 32.4 g/dl (32.0-35.9); MEAN CELL VOLUME 93.5 fl (80-96); PLATELET COUNT 161 10^3/uL (134-434); RBC 4.75 M/mm3 (4.00-5.60); RDW 20.9 % (11.9-15.9); WHITE BLOOD COUNT 15.7 K/mm3 (4.0-10.0)
[2023-12-02 05:40] LABS: ALBUMIN 2.6 g/dl (3.4-5.0); MAGNESIUM 2.8 mg/dL (1.8-2.4)
[2023-12-02 05:42] LABS: CREATININE 3.7 mg/dL (0.55-1.3)
[2023-12-02 05:43] LABS: SGOT/AST 602 U/L (15-37); SGPT/ALT 157 U/L (13-61)
[2023-12-02 05:44] LABS: BILIRUBIN,TOTAL 4.8 mg/dL (0.2-1); TOT PROT 5.6 g/dl (6.4-8.2)
[2023-12-02 05:45] LABS: ALK PHOS 255 U/L (45-117)
[2023-12-02 05:51] LABS: BLOOD UREA NITROGEN 123.4 mg/dL (7-18)
[2023-12-02 08:13] LABS: FIBROSIS SCORE. 0.98 (0.00-0.21); HCV ALPHA 2 MACRO CHART 102 mg/dL (110-276); NECRO.INFLAM ACT.SCORE 0.93 (0.00-0.17); NECROINFLAM. ACTIVITY GRADE A3-Severe activity (.)
[2023-12-02] MEDS ORDERED: FENTANYL IVPB 500 MCG/100 ML BAG IVPB SCH (09:15)
[2023-12-02 09:16] LABS: ANISOCYTOSIS 0; MACROCYTOSIS 0
[2023-12-02] MEDS: ALBUMIN HUMAN 25% 12.5 GM/50 ML VIAL IV SCH (10:18)
[2023-12-02] MEDS: PIPERACILLIN/TAZOB 4.5 GM 4.5 GM in DEXTROSE 5%-WATER 100 ML IVPB SCH (10:27)
[2023-12-02] MEDS: SODIUM ZIRCONIUM CYCLOSILICATE (LOKELMA) 5 GM PACKET GT ONE (11:24)
[2023-12-02] MEDS ORDERED: ACETAMINOPHEN 1000 MG/100 ML BAG IVPB PRN (11:43)
[2023-12-02] MEDS: FUROSEMIDE INJECTION 100 MG in SODIUM CHLORIDE 40 ML IVPB SCH (13:00)
[2023-12-02 15:07] LABS: CALCIUM 7.5 mg/dL (8.5-10.1); CHLORIDE 95 mmol/L (98-107); SODIUM 130 mmol/L (136-145)
[2023-12-02 15:10] LABS: CO2 18 mmol/L (21-32); GLUCOSE,RANDOM 113 mg/dL (74-106)
[2023-12-02 15:13] LABS: CREATININE 4.1 mg/dL (0.55-1.3)
[2023-12-02 15:30] LABS: ANION GAP 17 mmol/L (4-13); POTASSIUM 6.3 mmol/L (3.5-5.1)
[2023-12-02 17:00] LABS: CHLORIDE 96 mmol/L (98-107); POTASSIUM 5.6 mmol/L (3.5-5.1); SODIUM 133 mmol/L (136-145)
[2023-12-02 17:03] LABS: CALCIUM 7.4 mg/dL (8.5-10.1)
[2023-12-02 17:04] LABS: ANION GAP 19 mmol/L (4-13); CO2 18 mmol/L (21-32); GLUCOSE,RANDOM 122 mg/dL (74-106)
[2023-12-02 17:05] LABS: BLOOD UREA NITROGEN 126.6 mg/dL (7-18)
[2023-12-02] MEDS ORDERED: EPINEPHrine 1:10,000 (P-F SYR) 1 MG/10 ML DISP.SYRIN ONE (21:55)
[2023-12-02] MEDS ORDERED: CALCIUM GLUCONATE 10% - 1,000 MG/10 ML VIAL ONE (21:58)
[2023-12-02] MEDS ORDERED: CALCIUM CHLORIDE 1 GM/10 ML *DISP.SYRIN ONE (21:58)
[2023-12-02 22:30] LABS: ARTERIAL BLD GAS O2 SATURATION 97.5 % (95-98); ARTERIAL BLOOD GAS BASE EXCESS -9.6 mmol/L (-2-2); ARTERIAL BLOOD GAS PO2 107.9 mmHg (80-100); ARTERIAL BLOOD GAS pH 7.302 (7.350-7.450)
[2023-12-02 22:32] LABS: VENOUS BASE EXCESS -9.8 mmol/L (-2-2); VENOUS O2 SATURATION 69.1 % (70-80); VENOUS PCO2 41.1 mmHg (38-52); VENOUS PH 7.238 (7.310-7.410)
[2023-12-02 22:34] LABS: HEMATOCRIT 42.2 % (35.4-49); HEMOGLOBIN 14.2 GM/dL (11.7-16.9); MCH 30.8 pg (25.7-33.7); MCHC 33.7 g/dl (32.0-35.9); MEAN CELL VOLUME 91.4 fl (80-96); MEAN PLT VOLUME 8.9 fl (7.5-11.1); PLATELET COUNT 156 10^3/uL (134-434); RBC 4.62 M/mm3 (4.00-5.60); RDW 20.9 % (11.9-15.9); WHITE BLOOD COUNT 19.8 K/mm3 (4.0-10.0)
[2023-12-02 22:36] LABS: ADD RBC MORPHOLOGY YES
[2023-12-02 22:44] LABS: INR 1.68 (0.83-1.09)
[2023-12-02 22:53] LABS: CHLORIDE 98 mmol/L (98-107); POTASSIUM 5.9 mmol/L (3.5-5.1); SODIUM 134 mmol/L (136-145)
[2023-12-02 22:55] LABS: ANION GAP 18 mmol/L (4-13); CO2 18 mmol/L (21-32); GLUCOSE,RANDOM 110 mg/dL (74-106)
[2023-12-02 22:57] LABS: BLOOD UREA NITROGEN 131.8 mg/dL (7-18); CALCIUM 9.5 mg/dL (8.5-10.1)
[2023-12-02 22:58] LABS: CREATININE 4.1 mg/dL (0.55-1.3)
[2023-12-02] MEDS ORDERED: INSULIN REGULAR HUMAN 100 UNITS/ML *VIAL IVPUSH ONE (23:06)
[2023-12-02] MEDS: EPINEPHrine 1:1,000 1,000 MCG in DEXTROSE 5%-WATER - 249 ML IVPB SCH (23:30)
[2023-12-02] MEDS: DEXTROSE 50%-WATER - 25 GM/50 ML VIAL IVPUSH ONE (23:30)
[2023-12-02] MEDS: INSULIN REGULAR HUMAN 100 UNITS/ML *VIAL IVPUSH ONE (23:38)
[2023-12-02 23:46] LABS: ANISOCYTOSIS 2+; MACROCYTOSIS 1+; TARGET CELLS 1+
[2023-12-03] MEDS: FENTANYL NS IVPB 500 MCG/100 ML BAG IVPB SCH (06:38)
[2023-12-03] MEDS: MILRINONE 20MG/100ML IVPB - 20,000 MCG/100 ML ML IVPB SCH (06:38)
[2023-12-03 07:18] LABS: HEMATOCRIT 41.8 % (35.4-49); HEMOGLOBIN 13.7 GM/dL (11.7-16.9); MCH 30.6 pg (25.7-33.7); MCHC 32.7 g/dl (32.0-35.9); MEAN CELL VOLUME 93.6 fl (80-96); MEAN PLT VOLUME 8.5 fl (7.5-11.1); PLATELET COUNT 146 10^3/uL (134-434); RBC 4.47 M/mm3 (4.00-5.60); RDW 21.3 % (11.9-15.9); WHITE BLOOD COUNT 20.7 K/mm3 (4.0-10.0)
[2023-12-03 07:42] LABS: CHLORIDE 98 mmol/L (98-107); POTASSIUM 5.7 mmol/L (3.5-5.1); SODIUM 131 mmol/L (136-145)
[2023-12-03 07:45] LABS: ALBUMIN 2.3 g/dl (3.4-5.0); ANION GAP 15 mmol/L (4-13); CALCIUM 7.3 mg/dL (8.5-10.1); CO2 18 mmol/L (21-32); GLUCOSE,RANDOM 149 mg/dL (74-106); MAGNESIUM 2.8 mg/dL (1.8-2.4)
[2023-12-03 07:48] LABS: CREATININE 4.3 mg/dL (0.55-1.3); SGOT/AST 858 U/L (15-37); SGPT/ALT 172 U/L (13-61)
[2023-12-03 07:50] LABS: BILIRUBIN,TOTAL 5.7 mg/dL (0.2-1); TOT PROT 5.1 g/dl (6.4-8.2)
[2023-12-03 07:51] LABS: ALK PHOS 205 U/L (45-117)
[2023-12-03 08:01] LABS: BLOOD UREA NITROGEN 127.8 mg/dL (7-18); LACTIC ACID 3.4 mmol/L (0.4-2.0)
[2023-12-03] MEDS ORDERED: NOREPINEPHRINE BITARTRATE 4 MG/4 ML ML IV ONE (09:09)
[2023-12-03 09:26] LABS: ANISOCYTOSIS 2+; MACROCYTOSIS 0; TARGET CELLS 1+
[2023-12-03] MEDS ORDERED: SODIUM CHLORIDE 250 ML IV PRN (09:40)
[2023-12-03 10:05] LABS: PHOSPHOROUS 8.4 mg/dL (2.5-4.9)
[2023-12-03] MEDS: SODIUM ZIRCONIUM CYCLOSILICATE (LOKELMA) 5 GM PACKET GT SCH (12:00)
[2023-12-03] MEDS ORDERED: CALCIUM GLUCONATE 10% - 1,000 MG/10 ML VIAL IVPUSH ONE (16:53)
[2023-12-03] MEDS: CALCIUM GLUCONATE 10% - 1,000 MG/10 ML VIAL IVPUSH ONE (16:56)
[2023-12-03] MEDS: MAGNESIUM SULF 50% (8.12 MEQ/2 ML-1 GM VIAL) IVPB ONE (17:24)
[2023-12-03 17:31] LABS: HEMATOCRIT 38.9 % (35.4-49); HEMOGLOBIN 12.7 GM/dL (11.7-16.9); MCH 30.7 pg (25.7-33.7); MCHC 32.7 g/dl (32.0-35.9); MEAN CELL VOLUME 93.6 fl (80-96); MEAN PLT VOLUME 8.6 fl (7.5-11.1); PLATELET COUNT 139 10^3/uL (134-434); RBC 4.16 M/mm3 (4.00-5.60); RDW 21.9 % (11.9-15.9); WHITE BLOOD COUNT 26.4 K/mm3 (4.0-10.0)
[2023-12-03 17:43] LABS: INR 1.99 (0.83-1.09)
[2023-12-03 17:59] LABS: POTASSIUM 5.4 mmol/L (3.5-5.1)
[2023-12-03 18:03] LABS: ALBUMIN 2.4 g/dl (3.4-5.0); BLOOD UREA NITROGEN 103.6 mg/dL (7-18)
[2023-12-03 18:06] LABS: CREATININE 3.5 mg/dL (0.55-1.3)
[2023-12-03 18:07] LABS: PHOSPHOROUS 8.4 mg/dL (2.5-4.9)
[2023-12-03 18:08] LABS: BILIRUBIN,TOTAL 5.9 mg/dL (0.2-1); CALCIUM 8.4 mg/dL (8.5-10.1)
[2023-12-03 18:12] LABS: LACTIC ACID 9.4 mmol/L (0.4-2.0)
[2023-12-03] MEDS: SODIUM BICARBONATE 8.4% 50 MEQ/50 ML DISP.SYRIN IVPUSH ONE (18:39)
[2023-12-03 23:03] LABS: ARTERIAL BLD GAS O2 SATURATION 96.9 % (95-98); ARTERIAL BLOOD GAS BASE EXCESS -12.6 mmol/L (-2-2); ARTERIAL BLOOD GAS PO2 102.9 mmHg (80-100); ARTERIAL BLOOD GAS pH 7.245 (7.350-7.450)
[2023-12-03 23:12] LABS: VENT MODE AC; VENT RATE 20
[2023-12-03 23:33] LABS: HEMATOCRIT 35.6 % (35.4-49); HEMOGLOBIN 11.6 GM/dL (11.7-16.9); MCH 30.3 pg (25.7-33.7); MCHC 32.6 g/dl (32.0-35.9); MEAN CELL VOLUME 92.9 fl (80-96); MEAN PLT VOLUME 8.8 fl (7.5-11.1); PLATELET COUNT 126 10^3/uL (134-434); RBC 3.83 M/mm3 (4.00-5.60); RDW 21.7 % (11.9-15.9)
[2023-12-03 23:42] LABS: INR 2.39 (0.83-1.09); PROTHROMBIN TIME (PATIENT) 26.3 SEC (9.7-13.0)
[2023-12-04 00:23] LABS: ALBUMIN 2.4 g/dl (3.4-5.0); BLOOD UREA NITROGEN 118.6 mg/dL (7-18); CALCIUM 7.4 mg/dL (8.5-10.1); CHLORIDE 101 mmol/L (98-107); CREATININE 4.1 mg/dL (0.55-1.3); GLUCOSE,RANDOM 105 mg/dL (74-106); POTASSIUM 5.3 mmol/L (3.5-5.1); SGOT/AST 962 U/L (15-37); SGPT/ALT 176 U/L (13-61); SODIUM 137 mmol/L (136-145)
[2023-12-04 00:24] LABS: ALBUMIN 2.4 g/dl (3.4-5.0); CALCIUM 7.5 mg/dL (8.5-10.1); CHLORIDE 101 mmol/L (98-107); GLUCOSE,RANDOM 106 mg/dL (74-106); MAGNESIUM 3.3 mg/dL (1.8-2.4); POTASSIUM 5.3 mmol/L (3.5-5.1); SODIUM 137 mmol/L (136-145)
[2023-12-04 00:25] LABS: BILIRUBIN,TOTAL 6.1 mg/dL (0.2-1); TOT PROT 4.8 g/dl (6.4-8.2)
[2023-12-04 00:44] VITALS: RESP 22
[2023-12-04 00:57] LABS: LACTIC ACID 6.6 mmol/L (0.4-2.0)
[2023-12-04 01:11] LABS: ALK PHOS 183 U/L (45-117); ALK PHOS 188 U/L (45-117); BILIRUBIN,TOTAL 6.2 mg/dL (0.2-1); CREATININE 4.1 mg/dL (0.55-1.3); N-TERMINAL BNP > 175000.0 pg/ml (5-125); PHOSPHOROUS 8.7 mg/dL (2.5-4.9); SGOT/AST 951 U/L (15-37); SGPT/ALT 176 U/L (13-61); TOT PROT 4.7 g/dl (6.4-8.2)
[2023-12-04 01:39] LABS: CO2 16 mmol/L (21-32)
[2023-12-04 01:48] LABS: ANION GAP 20 mmol/L (4-13)
[2023-12-04 02:04] VITALS: BP 96/56; PULSE 98; TEMP 97.6
[2023-12-04 02:28] LABS: ANISOCYTOSIS 1+; MACROCYTOSIS 1+; TEAR DROP CELLS 1+
[2023-12-04] MEDS: EPINEPHrine 1:1,000 1,000 MCG in SODIUM CHLORIDE 249 ML IVPB SCH (03:03)
[2023-12-04] MEDS ORDERED: EPINEPHrine/PF 1 MG/1 ML (1:1,000) AMPULE ONE (03:16)
== END 2023-12-04 03:30 | disposition expired | DRG 291 ==
LOC: JER 18:23 → JERBED 19:53 → J4W 11-22 01:10 → JICU 11-23 02:00
PROVIDERS: ADMIT Internal Medicine; ATTEND Internal Medicine
PROC: 5A1955Z Respiratory Ventilation, Greater than 96 Consecutive Hours (ICD-10-PCS; 2023-11-23)
PROC: 0BH17EZ Insertion of Endotracheal Airway into Trachea, Via Natural or Artificial Opening (ICD-10-PCS; 2023-11-23)
PROC: 05H533Z Insertion of Infusion Device into Right Subclavian Vein, Percutaneous Approach (ICD-10-PCS; principal; 2023-11-25)
PROC: 0W9930Z Drainage of Right Pleural Cavity with Drainage Device, Percutaneous Approach (ICD-10-PCS; 2023-11-25)
PROC: 4A133J1 Monitoring of Arterial Pulse, Peripheral, Percutaneous Approach (ICD-10-PCS; 2023-12-03)
PROC: 4A133B1 Monitoring of Arterial Pressure, Peripheral, Percutaneous Approach (ICD-10-PCS; 2023-12-03)
PROC: 05HN33Z Insertion of Infusion Device into Left Internal Jugular Vein, Percutaneous Approach (ICD-10-PCS; 2023-12-03)
PROC: B544ZZA Ultrasonography of Left Jugular Veins, Guidance (ICD-10-PCS; 2023-12-03)
PROC: 5A12012 Performance of Cardiac Output, Single, Manual (ICD-10-PCS; 2023-12-04)
DX: I50.33 Acute on chronic diastolic (congestive) heart failure (principal); A41.9 Sepsis, unspecified organism; J96.01 Acute respiratory failure with hypoxia; R65.21 Severe sepsis with septic shock; J18.9 Pneumonia, unspecified organism; I24.89 Other forms of acute ischemic heart disease; R18.8 Other ascites; E87.4 Mixed disorder of acid-base balance; J90 Pleural effusion, not elsewhere classified; G40.909 Epilepsy, unspecified, not intractable, without status epilepticus; N40.1 Benign prostatic hyperplasia with lower urinary tract symptoms; R33.9 Retention of urine, unspecified; E78.5 Hyperlipidemia, unspecified; E87.5 Hyperkalemia; E88.09 Other disorders of plasma-protein metabolism, not elsewhere classified; I46.9 Cardiac arrest, cause unspecified
CPT/HCPCS: 31500; 36415; 36600; 70450-TC; 71045-TC-FY; 71250-TC; 76705-TC; 80048; 80053; 80076; 81003; 82042; 82140; 82150; 82172; 82248; 82308; 82550; 82553; 82570; 82803; 82945; 82962; 82977; 83010; 83605; 83615; 83690; 83735; 83880; 83883; 83986; 84100; 84157; 84300; 84460; 84478; 84484; 85025; 85027; 85610; 85730; 86704; 86705; 86707; 86708; 86850; 86900; 86901; 87040; 87070; 87075; 87077; 87086; 87205; 87340; 87350; 87380; 87389; 87517; 87635; 87899; 93005; 93010; 93306-TC; 94002; 99285-25; J1644; J3490; P9047